=== PATIENT | female | born 1950 | race Native Hawaiian/Other Pacific Islander ===

== ENCOUNTER 2018-01-24 17:11 | Observation (INO) | payer BC, OTHER ==
[~2018-01-24] VITALS: Ht 160 cm; Wt 60.0 kg
[~2018-01-24 17:11] MED LIST: OXYC-360 PO; PRIL20CA PO; SIMV40 PO
[2018-01-24 17:20] VITALS: BP 115/52; PULSE 75; RESP 20; TEMP 97.5; O2SAT 100
[2018-01-24] MEDS ORDERED: SODIUM CHLOR 0.9% 1000 ML INJ 1,000 ML IV ONE (17:22)
[2018-01-24] MEDS ORDERED: TETANUS/DIPHTHERIA TOXOID ADULT 0.5 ML VIAL IM ONE (17:30)
[2018-01-24] MEDS ORDERED: SODIUM CHLORIDE 0.9% FLUSH 10 ML FLUSH IVF PRN (17:30)
[2018-01-24] MEDS ORDERED: ONDANSETRON HCL 4 MG/2 ML VIAL IVP ONE (17:30)
[2018-01-24] MEDS ORDERED: LIDOCAINE HCL 1% PF 30 ML VIAL INFIL ONE (17:30)
[2018-01-24 17:38] LABS: BASOPHIL # 0.1 TH/MM3 (0-0.2); BASOPHIL % 2.1 % (0.0-2.0); EOSINOPHIL % 0.7 % (0.0-4.0); HEMATOCRIT 22.7 % (35.0-46.0); LYMPH % 27.4 % (9.0-44.0); LYMPHOCYTE # 1.3 TH/MM3 (1.0-4.8); MEAN CELL VOLUME 93.6 FL (80.0-100.0); MEAN CORPUSCULAR HGB CONC 35.2 % (32.0-36.0); MEAN PLATELET VOLUME 7.5 FL (7.0-11.0); MONO % 4.7 % (0.0-8.0); MONOCYTE # 0.2 TH/MM3 (0-0.9); NEUT % 65.1 % (16.0-70.0); PLATELET COUNT 144 TH/MM3 (150-450); RED BLOOD COUNT 2.43 MIL/MM3 (4.00-5.30); RED CELL DISTRIBUTION WIDTH 12.9 % (11.6-17.2); WHITE BLOOD COUNT 4.6 TH/MM3 (4.0-11.0)
[2018-01-24 17:53] VITALS: O2SAT 100
--- NOTE | 2018-01-24 17:56 | RADRPT ---
EXAM DATE/TIME: 01/24/2018 17:41 [facility] COMPARISON: No previous studies available for comparison. INDICATIONS : Syncopal episode. Palpitations. MEDICAL HISTORY : None. SURGICAL HISTORY : None. ENCOUNTER: Initial ACUITY: 1 day PAIN SCORE: 0/10 LOCATION: Bilateral chest FINDINGS: A single view of the chest demonstrates the lungs to be symmetrically aerated without evidence of mas s, infiltrate or effusion. Minimal basilar atelectasis or scarring. The cardiomediastinal contours a re unremarkable. Osseous structures are intact. CONCLUSION: 1. Minimal basilar atelectasis or scarring. No consolidation or effusion. Geronimo Saenz MD on January 24, 2018 at 17:53 Board Certified Radiologist. This report was verified electronically.
[2018-01-24 18:05] LABS: PROTHROMBIN TIME - PATIENT 10.6 SEC (9.8-11.6)
[2018-01-24 18:21] LABS: ALBUMIN 3.8 GM/DL (3.4-5.0); ALKALINE PHOSPHATASE 70 U/L (45-117); ALT (GPT) 24 U/L (10-53); AST (GOT) 29 U/L (15-37); BICARBONATE 20.8 MEQ/L (21.0-32.0); BLOOD UREA NITROGEN 10 MG/DL (7-18); CALCIUM 8.7 MG/DL (8.5-10.1); CHLORIDE 101 MEQ/L (98-107); CREATININE 0.96 MG/DL (0.50-1.00); GLOMERULAR FILTRATION RATE 58 ML/MIN (>89); GLUCOSE,RANDOM 122 MG/DL (74-106); SODIUM (NA) 132 MEQ/L (136-145); TOTAL BILIRUBIN ADULT 0.5 MG/DL (0.2-1.0); TROPONIN I LESS THAN 0.02 NG/ML (0.02-0.05)
[2018-01-24] MEDS ORDERED: POTASSIUM CHLORIDE 10 MEQ CONTROLLED RELEASE TAB PO ONE (19:00)
--- NOTE | 2018-01-24 19:00 | PD ---
HPI Chief Complaint: Syncope/Near-Syncope Time Seen by Provider: 17:22 Travel History International Travel<30 days: No Contact w/Intl Traveler<30days: No Traveled to known affect area: No History of Present Illness HPI Patient is a 67-year-old female who comes in after syncopal episode. She was in the sauna today, and says she was in there too long because she was talking to her friends. She says when she came out she felt very dizzy. She took a shower, using a shower chair, but when she got up to grab her towel she passed out. She complains of pain to her head and her ear. She says she was feeling in her normal state of health prior to the event. She denies having any chest pain or shortness of breath. Severity is mild to moderate. PFSH Past Medical History Cancer: No Cardiovascular Problems: No Diabetes: No Endocrine: No Genitourinary: No Hepatitis: No Hiatal Hernia: No Immune Disorder: No Musculoskeletal: Yes (arthritis back and neck problems) Neurologic: No Psychiatric: No Respiratory: No Thyroid Disease: No ?: Not Past Surgical History Abdominal Surgery: Yes (hemorroidectomy x2) AICD: No Joint Replacement: No Oral Surgery: Yes (tonsillectomy septoplasty) Pacemaker: No Social History Tobacco Use: No Allergies-Medications (Allergen,Severity, Reaction): Coded Allergies: No Known Allergies (Unverified , 07/30/13) Reported Meds & Prescriptions Reported Meds & Active Scripts Active Reported Percocet (Oxycodone/Acetaminophen) 5 Mg/325 Mg Tab 1-2 Tab PO Q4H PRN FOR PAIN Zocor 40 Mg Tab (Simvastatin) 40 Mg Tab 40 Mg PO QOD Prilosec (Omeprazole) 20 Mg Cap 20 Mg PO QOD Review of Systems Except as stated in HPI: all other systems reviewed are Neg General / Constitutional: No: Fever, Chills Eyes: No: Blurred Vision HENT: Positive: Headaches, Lightheadedness Cardiovascular: No: Chest Pain or Discomfort Respiratory: No: Shortness of Breath Musculoskeletal: No: Pain Skin: Positive Other (Laceration), No Rash Neurologic: Positive: Syncope Physical Exam Narrative GENERAL: Awake and alert, no acute distress. SKIN: Focused skin assessment warm/dry. Laceration to the right ear. HEAD: Atraumatic. Normocephalic. EYES: Pupils equal and round. No scleral icterus. Extraocular movements intact. ENT: Mucous membranes pink and moist. NECK: Trachea midline. No JVD. CARDIOVASCULAR: Regular rate and rhythm. No murmur appreciated. RESPIRATORY: No accessory muscle use. Clear to auscultation. Breath sounds equal bilaterally. GASTROINTESTINAL: Abdomen soft, non-tender, nondistended. MUSCULOSKELETAL: No obvious deformities. No clubbing. No cyanosis. No edema. NEUROLOGICAL: Awake and alert. No obvious cranial nerve deficits. Motor grossly within normal limits. Normal speech. PSYCHIATRIC: Appropriate mood and affect; insight and judgment normal. Data Data Last Documented VS Vital Signs Date Time Temp Pulse Resp B/P (MAP) Pulse Ox O2 Delivery O2 Flow Rate FiO2 01/24/18 17:53 100 Room Air 01/24/18 17:20 97.5 75 20 115/52 (73) Orders Orders Electrocardiogram (01/24/18 17:22) Complete Blood Count With Diff (01/24/18 17:22) Comprehensive Metabolic Panel (01/24/18 17:22) Troponin I (01/24/18 17:22) Act Partial Throm Time (Ptt) (01/24/18 17:22) Prothrombin Time / Inr (Pt) (01/24/18 17:22) Chest, Single Ap (01/24/18 17:22) Ct Brain W/O Iv Contrast(Rout) (01/24/18 17:22) Ct Cerv Spine W/O Contrast (01/24/18 17:22) Ecg Monitoring (01/24/18 17:22) Iv Access Insert/Monitor (01/24/18 17:22) Oximetry (01/24/18 17:22) Ondansetron Inj (Zofran Inj) (01/24/18 17:30) Sodium Chloride 0.9% Flush (Ns Flush) (01/24/18 17:30) Sodium Chlor 0.9% 1000 Ml Inj (Ns 1000 M (01/24/18 17:22) Lidocaine Pf 1% Inj (Xylocaine-Mpf 1% In (01/24/18 17:30) Tetanus/Diphtheria Tox Adult (Tetanus/Di (01/24/18 17:30) Potassium Chloride (Kcl) (01/24/18 19:00) Admit Order (Ed Use Only) (01/24/18 ) Place In Observation (01/24/18 ) Vital Signs (Adult) Q4H (01/24/18 20:07) Activity Bed Rest (01/24/18 20:07) Laboratory Technical Specialist / Telemetry CAM.Q8H (01/24/18 20:07) Diet Heart Healthy (01/25/18 Breakfast) Sodium Chloride 0.9% Flush (Ns Flush) (01/24/18 20:15) Sodium Chloride 0.9% Flush (Ns Flush) (01/24/18 21:00) Complete Blood Count With Diff (01/25/18 06:00) Basic Metabolic Panel (Bmp) (01/25/18 06:00) Echo 2d Comp With Doppler (01/24/18 ) Us Carotid Arteries Comp Bilat (01/24/18 ) Labs Laboratory Tests Test 01/24/18 17:26 White Blood Count 4.6 TH/MM3 Red Blood Count 2.43 MIL/MM3 Hemoglobin 8.0 GM/DL Hematocrit 22.7 % Mean Corpuscular Volume 93.6 FL Mean Corpuscular Hemoglobin 33.0 PG Mean Corpuscular Hemoglobin Concent 35.2 % Red Cell Distribution Width 12.9 % Platelet Count 144 TH/MM3 Mean Platelet Volume 7.5 FL Neutrophils (%) (Auto) 65.1 % Lymphocytes (%) (Auto) 27.4 % Monocytes (%) (Auto) 4.7 % Eosinophils (%) (Auto) 0.7 % Basophils (%) (Auto) 2.1 % Neutrophils # (Auto) 3.0 TH/MM3 Lymphocytes # (Auto) 1.3 TH/MM3 Monocytes # (Auto) 0.2 TH/MM3 Eosinophils # (Auto) 0.0 TH/MM3 Basophils # (Auto) 0.1 TH/MM3 CBC Comment DIFF FINAL Differential Comment Prothrombin Time 10.6 SEC Prothromb Time International Ratio 1.0 RATIO Activated Partial Thromboplast Time 19.6 SEC Blood Urea Nitrogen 10 MG/DL Creatinine 0.96 MG/DL Random Glucose 122 MG/DL Total Protein 7.0 GM/DL Albumin 3.8 GM/DL Calcium Level 8.7 MG/DL Alkaline Phosphatase 70 U/L Aspartate Amino Transf (AST/SGOT) 29 U/L Alanine Aminotransferase (ALT/SGPT) 24 U/L Total Bilirubin 0.5 MG/DL Sodium Level 132 MEQ/L Potassium Level 2.9 MEQ/L Chloride Level 101 MEQ/L Carbon Dioxide Level 20.8 MEQ/L Anion Gap 10 MEQ/L Estimat Glomerular Filtration Rate 58 ML/MIN Troponin I LESS THAN 0.02 NG/ML MDM Medical Decision Making Medical Screen Exam Complete: Yes Emergency Medical Condition: Yes Medical Record Reviewed: Yes Interpretation(s) ECG shows normal sinus rhythm at a rate of 75, no ST elevation or depression Differential Diagnosis Dehydration versus electrolyte abnormality versus ACS Narrative Course Patient is a 67-year-old female who comes in after syncopal episode. Exam shows a laceration to the right ear. IV established, labs sent. Labs concerning for hemoglobin of 8. Patient does say she has a history of esophageal issues. Rectal exam shows no blood in the stool. CT head and C-spine performed show no acute abnormalities. Chest x-ray shows no acute abnormalities. Patient given IV fluids. She reports feeling a little better, but still has some dizziness. Concern is that the anemia is causing syncopal episode, only prior labs we have are from 2014. Patient will be admitted for further management. Ear laceration repaired by JESSICA Sultana Diagnosis Primary Impression: Syncope and collapse Additional Impression: Anemia Qualified Codes: D64.9 - Anemia, unspecified Admitting Information Admitting Physician Requests: Admit Traci Degroot MD Jan 24, 2018 19:00
--- NOTE | 2018-01-24 19:41 | RADRPT ---
EXAM DATE/TIME: 01/24/2018 18:56 [facility] COMPARISON: No previous studies available for comparison. INDICATIONS : Syncope. Fall. RADIATION DOSE: 50.62 CTDIvol (mGy) MEDICAL HISTORY : Cerebrovascular disease. SURGICAL HISTORY : Craniotomy. ENCOUNTER: Initial ACUITY: 1 day PAIN SCALE: 10/10 LOCATION: Right cranial TECHNIQUE: Multiple contiguous axial images were obtained of the head. Using automated exposure control and adj ustment of the mA and/or kV according to patient size, radiation dose was kept as low as reasonably a chievable to obtain optimal diagnostic quality images. DICOM format image data is available electro nically for review and comparison. FINDINGS: CEREBRUM: The ventricles are normal for age. No evidence of midline shift, mass lesion, hemorrhage or acute in farction. No extra-axial fluid collections are seen. POSTERIOR FOSSA: The cerebellum and brainstem are intact. The 4th ventricle is midline. The cerebellopontine angle i s unremarkable. EXTRACRANIAL: The visualized portion of the orbits is intact. SKULL: The patient is status post right parietal craniotomy. CONCLUSION: No acute disease. Artie Castanon MD on January 24, 2018 at 19:38 Board Certified Radiologist. This report was verified electronically.
--- NOTE | 2018-01-24 19:48 | RADRPT ---
EXAM DATE/TIME: 01/24/2018 18:56 [facility] COMPARISON: No previous studies available for comparison. INDICATIONS : Trauma. Fall. RADIATION DOSE: 24.11 CTDIvol (mGy) MEDICAL HISTORY : Cerebrovascular disease. SURGICAL HISTORY : Craniotomy. ENCOUNTER: Initial ACUITY: 1 day PAIN SCALE: 10/10 LOCATION: Right neck TECHNIQUE: Volumetric scanning of the cervical spine was performed. Multiplanar reconstructions in the sagittal, coronal and oblique axial planes were performed. Using automated exposure control and adjustment o f the mA and/or kV according to patient size, radiation dose was kept as low as reasonably achievable to obtain optimal diagnostic quality images. DICOM format image data is available electronically f or review and comparison. FINDINGS: VERTEBRAE: Normal vertebral body height. There is hypertrophic change of the anterior C1-C2 articulation. ALIGNMENT: There is minimal anterior subluxation of C4 on C5 secondary to degenerative change. C2-C3: The bony spinal canal is normal in size. No evidence of disc bulge or herniation. The neural forami na are bilaterally patent. C3-C4: The bony spinal canal is normal in size. No evidence of disc bulge or herniation. The neural forami na are bilaterally patent. There is bilateral facet hypertrophy being worse on the left. C4-C5: Again noted is the minimal anterior subluxation of C4 on C5. There is mild posterior osteophytic ridg ing. The bony spinal canal is normal in size. No evidence of disc bulge or herniation. There is lef t facet and uncovertebral hypertrophy causing narrowing of the left neural foramina. The right neural foramina is patent. C5-C6: The bony spinal canal is normal in size. No evidence of disc bulge or herniation. The neural forami na are bilaterally patent. C6-C7: The bony spinal canal is normal in size. No evidence of disc bulge or herniation. The neural forami na are bilaterally patent. C7-T1: The bony spinal canal is normal in size. No evidence of disc bulge or herniation. The neural forami na are bilaterally patent. CONCLUSION: 1. No acute abnormality seen. 2. Degenerative change being most prominent at the C4-C5 level. Artie Castanon MD on January 24, 2018 at 19:42 Board Certified Radiologist. This report was verified electronically.
[2018-01-24] MEDS ORDERED: SODIUM CHLORIDE 0.9% FLUSH 10 ML FLUSH IV FLUSH PRN (20:15)
--- NOTE | 2018-01-24 20:47 | PD ---
Physical Exam Date Seen by Provider: Jan 24, 2018 Time Seen by Provider: 20:45 Narrative 67-year-old female that presents to the ED for evaluation of laceration and injury. I was asked by my attending to repair laceration. Please refer to her note. Data Data Last Documented VS Vital Signs Date Time Temp Pulse Resp B/P (MAP) Pulse Ox O2 Delivery O2 Flow Rate FiO2 01/24/18 17:53 100 Room Air 01/24/18 17:20 97.5 75 20 115/52 (73) Orders Orders Electrocardiogram (01/24/18 17:22) Complete Blood Count With Diff (01/24/18 17:22) Comprehensive Metabolic Panel (01/24/18 17:22) Troponin I (01/24/18 17:22) Act Partial Throm Time (Ptt) (01/24/18 17:22) Prothrombin Time / Inr (Pt) (01/24/18 17:22) Chest, Single Ap (01/24/18 17:22) Ct Brain W/O Iv Contrast(Rout) (01/24/18 17:22) Ct Cerv Spine W/O Contrast (01/24/18 17:22) Ecg Monitoring (01/24/18 17:22) Iv Access Insert/Monitor (01/24/18 17:22) Oximetry (01/24/18 17:22) Ondansetron Inj (Zofran Inj) (01/24/18 17:30) Sodium Chloride 0.9% Flush (Ns Flush) (01/24/18 17:30) Sodium Chlor 0.9% 1000 Ml Inj (Ns 1000 M (01/24/18 17:22) Lidocaine Pf 1% Inj (Xylocaine-Mpf 1% In (01/24/18 17:30) Tetanus/Diphtheria Tox Adult (Tetanus/Di (01/24/18 17:30) Potassium Chloride (Kcl) (01/24/18 19:00) Admit Order (Ed Use Only) (01/24/18 ) Place In Observation (01/24/18 ) Vital Signs (Adult) Q4H (01/24/18 20:07) Activity Bed Rest (01/24/18 20:07) Medical Transcription Editor / Telemetry CAM.Q8H (01/24/18 20:07) Diet Heart Healthy (3/28/18 Breakfast) Sodium Chloride 0.9% Flush (Ns Flush) (01/24/18 20:15) Sodium Chloride 0.9% Flush (Ns Flush) (01/24/18 21:00) Complete Blood Count With Diff (01/25/18 06:00) Basic Metabolic Panel (Bmp) (01/25/18 06:00) Echo 2d Comp With Doppler (01/24/18 ) Us Carotid Arteries Comp Bilat (01/24/18 ) Labs Laboratory Tests Test 01/24/18 17:26 White Blood Count 4.6 TH/MM3 Red Blood Count 2.43 MIL/MM3 Hemoglobin 8.0 GM/DL Hematocrit 22.7 % Mean Corpuscular Volume 93.6 FL Mean Corpuscular Hemoglobin 33.0 PG Mean Corpuscular Hemoglobin Concent 35.2 % Red Cell Distribution Width 12.9 % Platelet Count 144 TH/MM3 Mean Platelet Volume 7.5 FL Neutrophils (%) (Auto) 65.1 % Lymphocytes (%) (Auto) 27.4 % Monocytes (%) (Auto) 4.7 % Eosinophils (%) (Auto) 0.7 % Basophils (%) (Auto) 2.1 % Neutrophils # (Auto) 3.0 TH/MM3 Lymphocytes # (Auto) 1.3 TH/MM3 Monocytes # (Auto) 0.2 TH/MM3 Eosinophils # (Auto) 0.0 TH/MM3 Basophils # (Auto) 0.1 TH/MM3 CBC Comment DIFF FINAL Differential Comment Prothrombin Time 10.6 SEC Prothromb Time International Ratio 1.0 RATIO Activated Partial Thromboplast Time 19.6 SEC Blood Urea Nitrogen 10 MG/DL Creatinine 0.96 MG/DL Random Glucose 122 MG/DL Total Protein 7.0 GM/DL Albumin 3.8 GM/DL Calcium Level 8.7 MG/DL Alkaline Phosphatase 70 U/L Aspartate Amino Transf (AST/SGOT) 29 U/L Alanine Aminotransferase (ALT/SGPT) 24 U/L Total Bilirubin 0.5 MG/DL Sodium Level 132 MEQ/L Potassium Level 2.9 MEQ/L Chloride Level 101 MEQ/L Carbon Dioxide Level 20.8 MEQ/L Anion Gap 10 MEQ/L Estimat Glomerular Filtration Rate 58 ML/MIN Troponin I LESS THAN 0.02 NG/ML MDM Medical Record Reviewed: Yes Supervised Visit with ADITI: No Procedures Procedure Narrative LACERATION LOCATION: right ear lobe x2 (front and back) LENGTH: 1 cm (front), 1 cm (back) NUMBER OF STITCHES/DAYNA: 7 sutures (front), 5 (back) REPAIR: The area of the laceration was prepped with Betadine and sterilely draped. The laceration was infiltrated with 1% Xylocaine. The wound was copiously irrigated and explored without evidence of foreign body, tendon injury or neurovascular injury. The wound was closed using 5-0 Prolene. This was a 1 layer repair. A sterile dressing was applied. The patient was advised to keep the dressing clean and dry. Patient tolerated the procedure well. Diagnosis Primary Impression: Syncope and collapse Additional Impression: Anemia Qualified Codes: D64.9 - Anemia, unspecified Jose Luis Sultana Jan 24, 2018 20:47
[2018-01-24 20:50] VITALS: BP 127/73; PULSE 75; RESP 18; O2SAT 99
[2018-01-24] MEDS: SODIUM CHLORIDE 0.9% FLUSH 10 ML FLUSH IV FLUSH SCH (20:59)
[2018-01-24 22:20] VITALS: BP 108/63; PULSE 72; RESP 18; O2SAT 99
[2018-01-24 23:00] VITALS: PULSE 68
[2018-01-25] VITALS (8 sets, daily range): BP systolic 109–135; BP diastolic 60–101; PULSE 64–94; RESP 16–18; TEMP 97.4–98.1; O2SAT 95–97
[2018-01-25 07:06] LABS: AUTOMATED NEUTROPHIL # 4.4 TH/MM3 (1.8-7.7); BASOPHIL % 0.6 % (0.0-2.0); EOSINOPHIL % 0.3 % (0.0-4.0); HEMATOCRIT 35.9 % (35.0-46.0); HEMOGLOBIN 12.6 GM/DL (11.6-15.3); LYMPH % 20.8 % (9.0-44.0); LYMPHOCYTE # 1.3 TH/MM3 (1.0-4.8); MEAN CELL VOLUME 93.5 FL (80.0-100.0); MEAN CORPUSCULAR HEMOGLOBIN 32.8 PG (27.0-34.0); MEAN PLATELET VOLUME 8.3 FL (7.0-11.0); MONO % 6.9 % (0.0-8.0); MONOCYTE # 0.4 TH/MM3 (0-0.9); NEUT % 71.4 % (16.0-70.0); PLATELET COUNT 222 TH/MM3 (150-450); RED BLOOD COUNT 3.84 MIL/MM3 (4.00-5.30); RED CELL DISTRIBUTION WIDTH 12.8 % (11.6-17.2); WHITE BLOOD COUNT 6.1 TH/MM3 (4.0-11.0)
[2018-01-25 07:40] LABS: BICARBONATE 23.8 MEQ/L (21.0-32.0); CALCIUM 8.6 MG/DL (8.5-10.1)
[2018-01-25 07:49] LABS: CREATININE 0.81 MG/DL (0.50-1.00)
[2018-01-25] MEDS: SODIUM CHLORIDE 0.9% FLUSH 10 ML FLUSH IV FLUSH SCH (08:14)
--- NOTE | 2018-01-25 09:32 | HHI.HP ---
[facility] Al Villatoro MD Admission Diagnosis syncope, anemia Diagnoses: (1) Syncope and collapse Diagnosis: Principal Chief Complaint: Syncope Travel History International Travel<30 Days: No Contact w/Intl Traveler <30 Da: No Traveled to Known Affected Are: No History of Present Illness 67-year-old female with known history of hyperlipidemia, gastroesophageal reflux who presented to the hospital because syncopal episode. Patient states that she was in the sun yesterday and was in there for approximately 35 minutes in which she thought that she might have been in there too long. When she was getting out she was very weak and had difficulty ambulating. She sat down in the shower and when she went to stand up to grab a towel to wrap around her she does not recall what happened until she started hearing voices, she has some blurred vision which eventually cleared and she noticed some standing over her. Since she fell down and caused a laceration EMS was called and patient brought to emergency department for evaluation. Patient denies any loss of bowel or bladder control, denies any biting of her tongue, denies any muscle cramps. Patient has had 2 previous incidence like this in outpatient setting. One when she was getting something out of the freezer and she fell forward hitting her head another time she was picking up a pot got lightheaded dizzy fell forward. She did not have any syncopal episodes during those times. Patient has had an outpatient CT scan done by primary medical doctor and anticipating performing MRI for further evaluation of her lightheadedness, dizziness episodes. Patient did have workup done emergency department CT scan which was unremarkable. Laboratory studies were performed which did show anemia , however repeat laboratory showed normal hemoglobin. Likely laboratory error. Patient orthostatic vitals performed which were unremarkable. Patient was recommended observation for evaluation of syncope. Review of Systems Constitutional: COMPLAINS OF: Dizziness Cardiovascular: COMPLAINS OF: Syncope Except as stated in HPI: all other systems reviewed are Neg Past Family Social History Past Medical History Hyperlipidemia Gastroesophageal reflux Past Surgical History Tonsillectomy Rhinoplasty EGD Carpal tunnel surgery Right knee replacement Hemorrhoid surgery Reported Medications Reported Meds & Active Scripts Active Reported Percocet (Oxycodone/Acetaminophen) 5 Mg/325 Mg Tab 1-2 Tab PO Q4H PRN FOR PAIN Zocor 40 Mg Tab (Simvastatin) 40 Mg Tab 40 Mg PO QOD Prilosec (Omeprazole) 20 Mg Cap 20 Mg PO QOD Allergies: Coded Allergies: No Known Allergies (Unverified , 07/30/13) Family History Reviewed and unremarkable for any heart disease, lung disease, cancer, seizures , stroke. Social History Patient denies any tobacco, alcohol or illicit drugs Physical Exam Vital Signs Vital Signs Date Time Temp Pulse Resp B/P (MAP) Pulse Ox O2 Delivery O2 Flow Rate FiO2 01/25/18 08:25 94 121/101 (108) 01/25/18 08:20 72 116/86 (96) 01/25/18 08:15 97.4 75 16 109/73 (85) 97 01/25/18 07:01 64 01/25/18 04:00 98.0 75 17 115/75 (88) 97 135/87 (103) 01/25/18 00:00 98.1 68 17 112/65 (81) 96 01/24/18 23:00 68 01/24/18 22:45 01/24/18 22:20 72 18 108/63 (78) 99 Room Air 01/24/18 20:50 75 18 127/73 (91) 99 Room Air 01/24/18 20:50 75 16 99 01/24/18 17:53 100 Room Air 01/24/18 17:20 97.5 75 20 115/52 (73) 100 Physical Exam GENERAL: Well-developed, well-nourished, in no acute distress. alert and orientated HEENT: Head is normocephalic without any lesions or masses noted. Facial features are symmetric. Eyes: Pupils equal round reactive to light. Extraocular muscles are intact. Conjunctivae were clear. Oropharyngeal: Pharynx without any erythema edema. Tongue is midline without deviation. Buccal mucosa is moist without any masses or lesions, right ear does have dried blood and sutures noted in the external opening NECK: Supple without any masses. Trachea midline no deviation. No JVD, no bruits are appreciated CARDIAC: Regular rhythm, regular rate. S1/S2 are heard. No murmurs gallops or rubs. LUNGS: Clear to auscultation bilaterally. No wheeze, rhonchi or rales. No use of accessory muscles on inspiration or expiration. ABDOMEN: Soft, nontender. Nondistended. Bowel sounds heard in all 4 quadrants. No organomegaly or masses. Negative rebound, negative guarding EXTREMITIES: No edema, pulses are equal bilaterally. No cyanosis or clubbing NEUROLOGY: Mood and affect appear appropriate. Cranial nerves II through XII grossly intact. Muscle strength 5/5 in upper and lower extremities bilaterally. Deep tendon reflexes are 2+ in upper and lower extremities bilaterally. Laboratory Laboratory Tests Test 01/24/18 17:26 01/25/18 06:00 White Blood Count 4.6 6.1 Red Blood Count 2.43 3.84 Hemoglobin 8.0 12.6 Hematocrit 22.7 35.9 Mean Corpuscular Volume 93.6 93.5 Mean Corpuscular Hemoglobin 33.0 32.8 Mean Corpuscular Hemoglobin Concent 35.2 35.0 Red Cell Distribution Width 12.9 12.8 Platelet Count 144 222 Mean Platelet Volume 7.5 8.3 Neutrophils (%) (Auto) 65.1 71.4 Lymphocytes (%) (Auto) 27.4 20.8 Monocytes (%) (Auto) 4.7 6.9 Eosinophils (%) (Auto) 0.7 0.3 Basophils (%) (Auto) 2.1 0.6 Neutrophils # (Auto) 3.0 4.4 Lymphocytes # (Auto) 1.3 1.3 Monocytes # (Auto) 0.2 0.4 Eosinophils # (Auto) 0.0 0.0 Basophils # (Auto) 0.1 0.0 CBC Comment DIFF FINAL DIFF FINAL Differential Comment Prothrombin Time 10.6 Prothromb Time International Ratio 1.0 Activated Partial Thromboplast Time 19.6 Blood Urea Nitrogen 10 10 Creatinine 0.96 0.81 Random Glucose 122 73 Total Protein 7.0 Albumin 3.8 Calcium Level 8.7 8.6 Alkaline Phosphatase 70 Aspartate Amino Transf (AST/SGOT) 29 Alanine Aminotransferase (ALT/SGPT) 24 Total Bilirubin 0.5 Sodium Level 132 141 Potassium Level 2.9 4.0 Chloride Level 101 109 Carbon Dioxide Level 20.8 23.8 Anion Gap 10 8 Estimat Glomerular Filtration Rate 58 70 Troponin I LESS THAN 0.02 Result Diagram: 01/25/18 0600 01/25/18 0600 Imaging Last Impressions Head CT 01/24/181721 Signed Impressions: Service Date/Time: Wednesday, January 24, 2018 18:56 - CONCLUSION: No acute disease. Artie Castanon MD Chest X-Ray 01/24/181721 Signed Impressions: Service Date/Time: Wednesday, January 24, 2018 17:41 - CONCLUSION: 1. Minimal basilar atelectasis or scarring. No consolidation or effusion. Geronimo Saenz MD Cervical Spine CT 01/24/181721 Signed Impressions: Service Date/Time: Wednesday, January 24, 2018 18:56 - CONCLUSION: 1. No acute abnormality seen. 2. Degenerative change being most prominent at the C4-C5 level. Artie Castanon MD Caprini VTE Risk Assessment Caprini VTE Risk Assessment: No/Low Risk (score <= 1) Caprini Risk Assessment Model Point Value = 1 Point Value = 2 Point Value = 3 Point Value = 5 Age 41-60 Minor surgery BMI > 25 kg/m2 Swollen legs Varicose veins or History of unexplained or recurrent spontaneous Oral contraceptives or hormone replacement Sepsis (< 1 month) Serious lung disease, including pneumonia (< 1 month) Abnormal pulmonary function Acute myocardial infarction Congestive heart failure (< 1 month) History of inflammatory bowel disease Medical patient at bed rest Age 61-74 Arthroscopic surgery Major open surgery (> 45 min) Laparoscopic surgery (> 45 min) Malignancy Confined to bed (> 72 hours) Immobilizing plaster cast Central venous access Age >= 75 History of VTE Family history of VTE Factor V Leiden Prothrombin [id number] Lupus anticoagulant Anticardiolipin antibodies Elevated serum homocysteine Heparin-induced thrombocytopenia Other congenital or acquired thrombophilia Stroke (< 1 month) Elective arthroplasty Hip, pelvis, or leg fracture Acute spinal cord injury (< 1 month) Prophylaxis Regimen Total Risk Factor Score Risk Level Prophylaxis Regimen 0-1 Low Early ambulation 2 Moderate Order ONE of the following: *Sequential Compression Device (SCD) *Heparin 5000 units SQ BID 3-4 Higher Order ONE of the following medications: *Heparin 5000 units SQ TID *Enoxaparin/Lovenox 40 mg SQ daily (WT < 150 kg, CrCl > 30 mL/min) *Enoxaparin/Lovenox 30 mg SQ daily (WT < 150 kg, CrCl > 10-29 mL/min) *Enoxaparin/Lovenox 30 mg SQ BID (WT < 150 kg, CrCl > 30 mL/min) AND/OR *Sequential Compression Device (SCD) 5 or more Highest Order ONE of the following medications: *Heparin 5000 units SQ TID (Preferred with Epidurals) *Enoxaparin/Lovenox 40 mg SQ daily (WT < 150 kg, CrCl > 30 mL/min) *Enoxaparin/Lovenox 30 mg SQ daily (WT < 150 kg, CrCl > 10-29 mL/min) *Enoxaparin/Lovenox 30 mg SQ BID (WT < 150 kg, CrCl > 30 mL/min) AND *Sequential Compression Device (SCD) Assessment and Plan Assessment and Plan Syncope, recurrent Patient clinical pictures/episode does indicate likely orthostasis versus vasovagal reaction However, since this is a recurrent episodes will need further evaluation CT scan of the brain does not indicate any acute abnormality Reviewed telemetry during the patient's entire stay, no episodes of any arrhythmia or acute abnormality MRI brain did not indicate any acute abnormality Carotid ultrasound was on remarkable Echocardiogram indicated normal ventricular function without any significant valvular abnormalities Continue monitor orthostatic vitals Physical therapy evaluated patient and indicated patient is independent walking 180 feet Abnormal laboratory studies to indicate hyponatremia, hypokalemia, anemia Follow-up laboratory studies indicate normal testing at this time, probable laboratory error Patient was given potassium 30 mEq in the emergency department DVT prevention Sequential compression devices Discharge disposition Discharge home in stable condition Activity: Ad gypsy. Diet: Healthy heart diet Medication per medication reconciliation Follow-up of her medical doctor in 1 week Discussed Condition With Patient, Dr. Marshall, at bedside, nursing staff Riccardo Rowland Jan 25, 2018 09:32
--- NOTE | 2018-01-25 09:53 | RADRPT ---
EXAM DATE/TIME: 01/24/2018 20:56 [facility] COMPARISON: No previous studies available for comparison. INDICATIONS : Syncope. MEDICAL HISTORY : Arthritis. SURGICAL HISTORY : Tonsillectomy. Hemorrhoidectomy. Septoplasty. Cranial surgery. Bilateral knee surgery. Right hand c arpal tunnel release. ENCOUNTER: Initial ACUITY: 1 day PAIN SCORE: 0/10 LOCATION: Bilateral neck PEAK SYSTOLIC VELOCITIES (cm/sec): ICA/CCA RATIO: Right: 1.3 Left: 1.0 ICA: Right: 111 Left: 100 CCA: Right: 85 Left: 96 ECA: Right: 115 Left: 91 VERTEBRAL: Right: 44 antegrade Left: 67 antegrade Elevated flow velocities and ICA/CCA ratios have been found to correlate with increased degrees of vessel stenosis, calculated as percentage of diameter relative to a normal segment of distal ICA/CCA FINDINGS: RIGHT CAROTID: No significant stenosis is visualized. The waveforms are within normal limits. LEFT CAROTID: No significant stenosis is visualized. The waveforms are within normal limits. VERTEBRAL ARTERIES: Antegrade flow is seen in both vertebral arteries. MISCELLANEOUS: None. CONCLUSION: Normal examination. Artie Dean MD on January 25, 2018 at 9:50 Board Certified Radiologist. This report was verified electronically.
[2018-01-25] MEDS ORDERED: GADODIAMIDE PF 287 MG/ML 5 ML VIAL (for RAD MRI) IVCONTRAST ONE (13:15)
--- NOTE | 2018-01-25 14:10 | RADRPT ---
EXAM DATE/TIME: 01/25/2018 13:05 [facility] COMPARISON: CT BRAIN W/O CONTRAST, January 24, 2018, 18:56. INDICATIONS : Dizziness. Syncope. CONTRAST: 12 cc Omniscan (gadodiamide) IV MEDICAL HISTORY : Gastroesophageal reflux disease. SURGICAL HISTORY : Tonsillectomy. Carpal tunnel syndrome. Total knee replacement, right. Rhinoplasty. Craniotomy 20 yea rs ago. ENCOUNTER: Subsequent ACUITY: 2 day PAIN SCORE: 0/10 LOCATION: head. TECHNIQUE: Multiplanar, multisequence MRI of the brain was performed both prior to and following the administrat ion of paramagnetic contrast. FINDINGS: CEREBRUM: The ventricles are normal for age. No evidence of midline shift, mass lesion, hemorrhage or acute in farction. No extraaxial fluid collections are seen. The pituitary gland and suprasellar cistern are normal in configuration. WHITE MATTER: No significant signal abnormalities are seen in the white matter. POSTERIOR FOSSA: The cerebellum and brainstem are intact. The 4th ventricle is midline. The cerebellopontine angle is unremarkable. The cerebellar tonsils are normal in position. DIFFUSION IMAGING: No focal areas of restricted diffusion are seen. No evidence of acute infarction. EXTRACRANIAL: The visualized portions of the orbits and paranasal sinuses are unremarkable. Status post previous cr aniotomy along the right posterior parietal area. Postsurgical changes are noted in this region. POST-CONTRAST: No abnormal areas of parenchymal or dural enhancement. No evidence of blood-brain barrier breakdown. No enhancing mass occupying lesions. CONCLUSION: 1. Unremarkable MRI of the brain for patient's age. 2. Status post previous craniotomy of the right posterior parietal area with postsurgical changes. 3. No focal or acute intracranial pathology. Alejandro Pierce MD on January 25, 2018 at 14:06 Board Certified Radiologist. This report was verified electronically.
--- NOTE | 2018-01-25 17:13 | HHI.DCPOC ---
Discharge Care Plan Diagnosis: (1) Syncope and collapse Goals to Promote Your Health * To prevent worsening of your condition and complications * To maintain your health at the optimal level Directions to Meet Your Goals Take your medications as prescribed Follow your dietary instruction Follow activity as directed Keep your appointments as scheduled Take your immunizations and boosters as scheduled If your symptoms worsen call your PCP, if no PCP go to Urgent Care Center or Emergency Room Smoking is Dangerous to Your Health. Avoid second hand smoke Call the 24-hour hour crisis hotline for domestic abuse at Riccardo Rowland Jan 25, 2018 17:13
--- NOTE | 2018-01-25 18:07 | ECHRPT ---
Indication: Syncope and collapse CONCLUSIONS The left ventricular systolic function is moderately reduced with an estimated ejection fraction in the range of 40-45%. Normal left ventricular size. Wall thickness is normal. [id number] mitral valve regurgitation. There is mild tricuspid valve regurgitation. The estimated pulmonary arterial pressure is 28.1 mmHg. BP: / HR: 72 Rhythm: Sinus MEASUREMENTS (Male / Female) Normal Values Technical Quality:Good 2D ECHO LV Diastolic Diameter PLAX 4.7 cm 4.2 - 5.9 / 3.9 - 5.3 cm LV Systolic Diameter PLAX 3.9 cm IVS Diastolic Thickness 1.1 cm 0.6 - 1.0 / 0.6 - 0.9 cm LVPW Diastolic Thickness 1.1 cm 0.6 - 1.0 / 0.6 - 0.9 cm LV Relative Wall Thickness 0.5 LVOT Diameter 1.8 cm M-MODE Aortic Root Diameter MM 2.5 cm LA Systolic Diameter MM 3.1 cm LA Ao Ratio MM 1.2 AV Cusp Separation MM 1.6 cm DOPPLER AV Peak Velocity 149.0 cm/s AV Peak Gradient 8.9 mmHg LVOT Peak Velocity 95.8 cm/s LVOT Peak Gradient 3.7 mmHg AV Area Cont Eq pk 1.6 cm MR Peak Velocity 331.0 cm/s MR Peak Gradient 43.8 mmHg Mitral E Point Velocity 78.5 cm/s Mitral A Point Velocity 46.9 cm/s Mitral E to A Ratio 1.7 LV E' Lateral Velocity 16.4 cm/s Mitral E to LV E' Lateral Ratio 4.8 LV E' Septal Velocity 8.4 cm/s Mitral E to LV E' Septal Ratio 9.4 TR Peak Velocity 213.0 cm/s TR Peak Gradient 18.1 mmHg Right Atrial Pressure 10.0 mmHg Pulmonary Artery Systolic Pressu 28.1 mmHg Right Ventricular Systolic Press 28.1 mmHg PV Peak Velocity 102.0 cm/s PV Peak Gradient 4.2 mmHg FINDINGS LEFT VENTRICLE The left ventricular systolic function is moderately reduced with an estimated ejection fraction in the range of 40-45%. Normal left ventricular size. Wall thickness is normal. RIGHT VENTRICLE Normal right ventricular size and systolic function. LEFT ATRIUM The left atrial size is normal. RIGHT ATRIUM The right atrial size is normal. ATRIAL SEPTUM Normal atrial septal thickness without atrial level shunting by limited color doppler interrogation. AORTA The aortic root and proximal ascending aorta are normal in size on limited imaging. MITRAL VALVE [id number]-[id number] mitral valve regurgitation. AORTIC VALVE Trileaflet aortic valve. No aortic valve stenosis or regurgitation. TRICUSPID VALVE There is mild tricuspid valve regurgitation. The estimated pulmonary arterial pressure is 28.1 mmHg. PULMONARY VALVE No pulmonary valve regurgitation or stenosis. VESSELS The inferior vena cava is normal in size. PERICARDIUM No pericardial effusion. Deepak Lainez MD, FACC, [facility] [place] (Electronically Signed) Final Date:25 January 2018 18:06
--- NOTE | 2018-01-25 22:44 | EKG ---
Date Performed: 01/24/2018 Time Performed: 17:40:22 PTAGE: 67 years EKG: Sinus rhythm POSSIBLE LEFT ATRIAL ENLARGEMENT BORDERLINE ECG NO PREVIOUS TRACING DOCTOR: Nav Johnson Interpretating Date/Time 01/27/2018 06:37:30
== END 2018-01-25 18:43 | disposition home or self-care (01) ==
LOC: PHED 17:11 → PHEDA 20:08 → PH3B 22:49
PROVIDERS: ADMIT Hospitalist; ATTEND Hospitalist
DX: R55 Syncope and collapse (principal); S01.311A Laceration without foreign body of right ear, initial encounter; D64.9 Anemia, unspecified; R53.1 Weakness; R42 Dizziness and giddiness; E78.5 Hyperlipidemia, unspecified; K21.9 Gastro-esophageal reflux disease without esophagitis; Z79.899 Other long term (current) drug therapy; Z23 Encounter for immunization; W19.XXXA Unspecified fall, initial encounter
CPT/HCPCS: 70450; 70553; 71045; 72125; 80048; 80053; 84443; 84484; 85025; 85610; 85730; 90714; 93005; 93306; 93880; 97162; A9579; G8987; G8988; J2405; J7030; 12011; 90471; 96361; 96374; G0378

== ENCOUNTER 2018-02-08 16:05 | Emergency (ER) | payer OTHER ==
[~2018-02-08] VITALS: Ht 157.5 cm; Wt 64.9 kg
[2018-02-08 16:08] VITALS: BP 157/85; PULSE 80; RESP 16; TEMP 97.8; O2SAT 98
--- NOTE | 2018-02-08 16:20 | PD ---
HPI Chief Complaint: Wound/Suture/Staple Re-Check Time Seen by Provider: 16:12 Travel History International Travel<30 days: No Contact w/Intl Traveler<30days: No Traveled to known affect area: No History of Present Illness HPI 67-year-old female presents emergency department evaluation of sutures that were placed in her right ear after a syncopal episode that occurred in late December. Says she went to her primary care physician today who suggested she come in to the ED for removal. Pt says she is anxious for this removal. Denies any issues with the sutures. Denies excessive pain. PFSH Past Medical History Hx Anticoagulant Therapy: No Arthritis: Yes Asthma: No Autoimmune Disease: No Anxiety: Yes Depression: No Heart Rhythm Problems: No Cancer: No Cardiovascular Problems: Yes (CHOL) High Cholesterol: Yes Chest Pain: No Congestive Heart Failure: No COPD: No Cerebrovascular Accident: No Diabetes: No Endocrine: No Gastrointestinal Disorders: Yes (reflux ok now due to medication) GERD: Yes Genitourinary: No Hepatitis: No Hiatal Hernia: No Immune Disorder: No Kidney Stones: No Musculoskeletal: Yes (arthritis back and neck problems) Neurologic: Yes Psychiatric: Yes Reproductive: No Respiratory: No Migraines: No Renal Failure: No Seizures: No Sleep Apnea: No Thyroid Disease: No Ulcer: No ?: Not Past Surgical History Abdominal Surgery: Yes (hemorroidectomy x2) AICD: No Cardiac Surgery: No Ear Surgery: No Endocrine Surgery: No Eye Surgery: No Gynecologic Surgery: No Joint Replacement: Yes (RT KNEE REPLACEMENT) Neurologic Surgery: Yes (scalp right side is artifical) Oral Surgery: Yes (tonsillectomy septoplasty) Pacemaker: No Thoracic Surgery: No Other Surgery: Yes Social History Alcohol Use: No Tobacco Use: No Substance Use: No Allergies-Medications (Allergen,Severity, Reaction): Coded Allergies: No Known Allergies (Unverified Adverse Reaction, Unknown, 02/08/18) Reported Meds & Prescriptions Reported Meds & Active Scripts Active Mupirocin Topical (Mupirocin) 2 % Oint 1 Applic TOPICAL BID 3 Days Reported Percocet (Oxycodone/Acetaminophen) 5 Mg/325 Mg Tab 1-2 Tab PO Q4H PRN FOR PAIN Zocor (Simvastatin) 40 Mg Tab 40 Mg PO QOD Prilosec 20 mg (Omeprazole) 20 Mg Cap 20 Mg PO QOD Review of Systems Except as stated in HPI: all other systems reviewed are Neg Physical Exam Narrative GENERAL: WD, WN, anxious SKIN: Focused skin assessment warm/dry. right ear- sutures in place with scabbing. HEAD: Atraumatic. Normocephalic. EYES: No scleral icterus. No injection or drainage. ENT: No nasal bleeding or discharge. Mucous membranes pink and moist. NECK: Trachea midline. No JVD. CARDIOVASCULAR: Regular rate and rhythm. No murmur appreciated. MUSCULOSKELETAL: No obvious deformities. No clubbing. No cyanosis. No edema. NEUROLOGICAL: Awake and alert. No obvious cranial nerve deficits. Motor grossly within normal limits. Normal speech. PSYCHIATRIC: Appropriate mood and affect; insight and judgment normal. Data Data Last Documented VS Vital Signs Date Time Temp Pulse Resp B/P (MAP) Pulse Ox O2 Delivery O2 Flow Rate FiO2 02/08/18 16:08 97.8 80 16 157/85 (109) 98 Orders Orders Ed Discharge Order (02/08/18 17:19) MDM Medical Decision Making Medical Screen Exam Complete: Yes Emergency Medical Condition: Yes Differential Diagnosis suture removal, laceration of right ear, cellulitis Narrative Course 67-year-old female presents emergency department for suture removal in the right ear. Vital signs stable. Exam findings demonstrate sutures in place in the right ear and posterior with scabbing. Patient is rather anxious. I attempted once to remove the sutures the patient was unable to tolerate the procedure. I applied wet gauze and topical lidocaine to assist removal. Topical lidocaine applied to reduce pain/discomfort with removal. Because of the location and patient's tolerance, required additional time for suture removal. There was some slight dehiscence of the posterior skin of the ear. However, It did appear that the site was healing well so the remaining sutures were removed. Mupirocin prescribed for protection and healing. Patient to follow-up with a primary care physician for wound monitoring. Advised to return for worsening or persistent symptoms. Diagnosis Primary Impression: Encounter for removal of sutures Referrals: Primary Care Physician Additional Instructions: Follow-up with primary care physician. If you develop bleeding, apply pressure for 10 minutes control the bleeding. May apply mupirocin over the ear to reduce possibility of infection. Scripts Mupirocin Topical (Mupirocin Topical) 2 % Oint 1 APPLIC TOPICAL BID for Mgmt Bacterial Infection for 3 Days, #1 TUBE 0 Refills Prov: Selina Dacosta MD 02/08/18 Disposition: 01 DISCHARGE HOME Condition: Stable Brunilda Burden Feb 08, 2018 16:20
[2018-02-08] MEDS ORDERED: MUPI2OIN TOPICAL (17:18)
== END 2018-02-08 17:26 | disposition home or self-care (01) ==
LOC: PHEFT 16:05
DX: Z48.02 Encounter for removal of sutures (principal); M19.90 Unspecified osteoarthritis, unspecified site; F41.9 Anxiety disorder, unspecified; E78.00 Pure hypercholesterolemia, unspecified; K21.9 Gastro-esophageal reflux disease without esophagitis; Z79.899 Other long term (current) drug therapy
CPT/HCPCS: 99281